=== PATIENT | male | born 1975 | race Caucasian/White ===

== ENCOUNTER 2017-11-08 22:37 | Emergency (ER) | payer OTHER ==
[2017-11-09] MEDS: KETOROLAC 60 MG INJ IM (02:15)
== END 2017-11-09 02:52 | disposition home or self-care (01) ==
LOC: FTE 22:37
DX: S40.022A Contusion of left upper arm, initial encounter (principal); F17.210 Nicotine dependence, cigarettes, uncomplicated; X58.XXXA Exposure to other specified factors, initial encounter; Y92.9 Unspecified place or not applicable
CPT/HCPCS: 96372; 99284-25